=== PATIENT | male | born 1945 | race Caucasian/White ===

== ENCOUNTER 2018-08-05 05:08 | Inpatient (IN) ==
[~2018-08-05 05:08] MED LIST: Metoprolol Tartrate 25 MG Tablet PO SCH
[2018-08-05] MEDS ORDERED: Metoprolol Tartrate 25 MG Tablet PO ONE (05:30)
[2018-08-05] MEDS ORDERED: Chlorhexidine Gluconate 2% 1 Pack (2 Cloths) TOPICAL ONE (05:30)
[2018-08-05] MEDS ORDERED: Insulin Regular (For Infusion) 100 UNIT in Sodium Chlor 0.9% Inj 99 ML IV.CONT PRN (05:36)
[2018-08-05] MEDS ORDERED: Dextrose 50% in Water 50 ML Vial IV.PUSH PRN ×2 (05:36→12:48)
[2018-08-05] MEDS ORDERED: Sodium Chlor 0.9% Inj 77.5 ML, Papaverine Inj 60 MG, Nitroglycerin Inj 100 MCG, dilTIAZ... IRRIGATION SCH ×3 (05:45)
[2018-08-05] MEDS ORDERED: Chlorhexidine 4% Topical 120 APPLIC/120 ML Bottle TOPICAL SCH (05:45)
[2018-08-05] MEDS ORDERED: Sodium Chloride 0.9% Irr Bot 500 ML, ceFAZolin Inj 500 MG IRRIGATION SCH ×2 (05:45)
[2018-08-05] MEDS ORDERED: Sodium Chlor 0.9% Inj 500 ML IV.SIG SCH (06:00)
[2018-08-05] MEDS ORDERED: ceFAZolin Inj 2,000 MG in Sodium Chlor 0.9% Inj 80 ML IV.SIG SCH (06:00)
[2018-08-05] MEDS ORDERED: Heparin - SQ 10,000 UNITS/ML Vial ONE ×2 (06:30→06:31)
[2018-08-05] MEDS ORDERED: MethylPREDNISolone Sod Succinate Inj 125 MG/2 ML Vial ONE (06:30)
[2018-08-05] MEDS ORDERED: Cardioplegic Irr Soln 2,000 ML IRRIGATION ONE (07:17)
[2018-08-05] MEDS ORDERED: Albumin Human 25% Inj 50 ML IV.SIG ONE (07:17)
[2018-08-05] MEDS ORDERED: Heparin 10,000 UNITS/10 ML Vial (for IV use) ONE ×2 (07:18→13:19)
[2018-08-05] MEDS ORDERED: Potassium Chlor 40 mEq Premix 80 MEQ/200 ML PIGGYBACK ONE (07:18)
[2018-08-05] MEDS ORDERED: Sodium Bicarbonate 8.4% Inj 50 MEQ/50 ML Syringe ONE (07:19)
[2018-08-05] MEDS ORDERED: Calcium Chloride Inj 1 GM/10 ML Syringe ONE (07:20)
[2018-08-05] MEDS ORDERED: ceFAZolin 1 GM Premix Inj 1 GM/50 ML PIGGYBACK IV.SIG ONE (11:38)
[2018-08-05] MEDS ORDERED: Dexmedetomidine Inj 200 MCG in Sodium Chlor 0.9% Inj 48 ML IV.CONT PRN (12:48)
[2018-08-05] MEDS ORDERED: Magnesium Sulfate Inj 2 GM in Sodium Chlor 0.9% Inj 96 ML IV.SIG PRN ×4 (12:48)
[2018-08-05] MEDS ORDERED: Metoprolol Inj 5 MG/5 ML Vial IV.PUSH PRN (12:48)
[2018-08-05] MEDS ORDERED: Potassium Chlor 20 mEq Premix 20 MEQ/100 ML PIGGYBACK IV.SIG PRN ×3 (12:48)
[2018-08-05] MEDS ORDERED: Clevidipine Inj 25 MG/50 ML VIAL IV.CONT PRN (12:48)
[2018-08-05] MEDS ORDERED: RESP: Racemic Epinephrine 2.25% 0.5 ML Neb NEB PRN (12:48)
[2018-08-05] MEDS ORDERED: Post-op Orders (for Pharmacy) OTHER STA (12:48)
[2018-08-05] MEDS ORDERED: Calcium Chloride Inj 1 GM/10 ML Syringe IV.PUSH PRN (12:48)
--- NOTE | 2018-08-05 13:03 | P.OP ---
- Preoperative Diagnosis (1) CAD (coronary artery disease) (2) PSVT (paroxysmal supraventricular tachycardia) (3) Angina pectoris - Postoperative Diagnosis (1) Angina pectoris (2) CAD (coronary artery disease) (3) PSVT (paroxysmal supraventricular tachycardia) Date of procedure: 08/05/18 Procedure: CABG x 5 SOTELO to LAd - good SVG to D1 - good SVG to OM1 - good SVG to OM@ - good SVG to PDA - fair MAZE procedure EVH (bilateral) Anesthesia: NELI Surgeon: Maureen Spear MD [employer] Investigator: Agnieszka Lynch Pathology: other (left atrial appendage) Operation and Findings: The risks, benefits, complications, treatment options, and expected outcomes were discussed with the patient. The possibilities of reaction to medication, pulmonary aspiration, perforation of viscus, bleeding, recurrent infection, the need for additional procedures, failure to diagnose a condition, and creating a complication requiring transfusion or operation were discussed with the patient. The patient concurred with the proposed plan, giving informed consent. The site of surgery properly noted/marked. The patient was taken to Operating Room, identified as Elias Arenas and the procedure verified as CABG, EVH, MAZE procedure. A Time Out was held and the above information confirmed. Standard monitoring lines and Nguyễn catheter were placed. General anesthesia was induced. The patient was prepped and draped in a sterile fashion. A median sternotomy was performed and electrocautery was used to obtain hemostasis. The left internal mammary artery was procured as a pedicle from the 7th rib to the 1st rib in the usual manner. Simultaneously left and right greater saphenous vein was procured from the both legs using a minimally invasive endoscopic technique. The vein was prepared for anastomosis and the leg wounds were irrigated and closed in 2 layers. The pericardium was opened and a pericardial sling was created using interrupted 0 silk sutures. The patient was heparinized for cardiopulmonary bypass and the distal mammary pedicle was instrumented for anastomosis. The heart was instrumented for cardiopulmonary bypass in the usual manner. Antegrade blood cardioplegia was employed. The patient was placed on cardiopulmonary bypass. A limited MAZE procedure was performed by resecting the left atrial appendage with a surgical stapler, and treating all 4 pulmonary veins with RF ablation using an Atricure device. An aortic cross-clamp was applied and the heart was arrested using cold blood cardioplegia. Antegrade cardioplegia was administered after each anastomosis. After adequate arrest, the distal right coronary circulation was investigated and the PDA was opened with a [place] blade and found to be a 1 millimeter fair target. Saphenous vein was approximated to the PDA artery using a running 7 0 Prolene suture. The graft was measured for length and orientation and the proximal anastomosis was constructed to the ascending aorta using a running 5 0 Prolene suture after creating an aortotomy with a 5 millimeter punch. The OM2 was opened with a [place] blade and found to be a 1.5 millimeter good target. Saphenous vein was approximated to the OM2 artery using a running 7 0 Prolene suture. The graft was measured for length and orientation and the proximal anastomosis was constructed to the ascending aorta using a running 5 0 Prolene suture after creating an aortotomy with a 5 millimeter punch. The OM1 was opened with a [place] blade and found to be a 1.5 millimeter good target. Saphenous vein was approximated to the OM1 artery using a running 7 0 Prolene suture. The graft was measured for length and orientation and the proximal anastomosis was constructed to the ascending aorta using a running 5 0 Prolene suture after creating an aortotomy with a 5 millimeter punch. The 1st diagonal artery was then opened with a [place] blade and found to be a 1.5 millimeter good target. Saphenous vein was approximated to the D1 artery using a running 7 0 Prolene suture. The graft was measured for length and orientation and was suspended from the pericardium. The distal LAD was opened with a [place] blade and found to be a 1.5 millimeter good target. The left internal mammary artery was approximated to the LAD using a running 7 0 Prolene suture. The pedicle was attached to the epicardium using interrupted 5 0 silk suture. The patient was systemically rewarmed and received a hotshot dose of warm blood cardioplegia. The aorta was vented and the proximal anastomosis to the D1 graft was accomplished using a running 5 0 Prolene suture after creating an aortotomy was a 5 millimeter punch. The cross-clamp was removed and all proximal and distal anastomoses were examined for hemostasis. Temporary atrial pacing on wires were positioned and brought out through the skin in the usual manner. The patient was weaned from cardiopulmonary bypass. Protamine was given. There was no adverse reaction. Decannulation was carried out without incident. Wound was checked for hemostasis which was obtained using electrocautery. A 36 [place] mediastinal and 32 [place] left pleural chest tubes were placed and secured to the skin with 0 silk suture. The sternum was closed with stainless steel wire. The fascia was closed with 1. PDS. The subcutaneous tissue was closed using a running 2-0 Vicryl suture. The skin was closed with 4-0 Monocryl. Sterile dressings were placed. At the end of the operation, all sponge, instruments, and needle counts were correct. The patient was transferred to the CVICU in stable condition and in sinus rhythm Findings: Relatively good distal targets XC: 80 min CPB: 96 min Drains: mediastinal x 1 pleural x 1 Specimens: left atrial appendage Complications: none Pacing Wires: 2 atrial
[2018-08-05] MEDS ORDERED: Potassium Chlor 40 mEq Premix 40 MEQ/100 ML PIGGYBACK ONE (13:19)
--- NOTE | 2018-08-05 13:45 | P.PNCV ---
- Note Subjective/Hospital Course: A 73-year-old patient of Dr. Kamari Amezquita and Dr. Beltre who presented with history of recently diagnosed atrial fibrillation. Pt was initially 07/16/18 , was placed on Eliquis and then also just recently on Brilinta. Been complaining of some chest discomfort. Underwent CT scan showing inferior reversible defect consistent with ischemia. Was admitted electively for cardiac catheterization. Catheterization showed an ejection fraction of 45%, left main disease of 40%, proximal LAD 70%, mid LAD 80%, diagonal 80%. The circumflex was 31, OM 80%, the ramus 80% proximally. We were consulted to evaluate for coronary artery bypass grafting. PAST MEDICAL HISTORY: Includes atrial fibrillation, hypertension, hyperlipidemia , peripheral vascular disease, benign prostatic hypertrophy, hypertension, hyperlipidemia, hematuria. 08/05 pt electively admitted for surgery Date of procedure: 08/05/18 Procedure: CABG x 5 SOTELO to LAd - good SVG to D1 - good SVG to OM1 - good SVG to OM@ - good SVG to PDA - fair MAZE procedure EVH (bilateral) Objective: Vital Signs - 24 hr 08/05/18 06:32 Temperature 98.9 F Pulse Rate 68 Respiratory Rate 20 Blood Pressure 146/100 H Pulse Oximetry 94 L Labs: Laboratory Results - last 12 hr 08/05/18 06:25 Blood Type O Negative Antibody Screen Negative MTS Gel Crossmatch See Detail Bld Prod Order Comment
[2018-08-05] MEDS: Insulin Regular (For Infusion) 100 UNIT in Sodium Chlor 0.9% Inj 99 ML IV.CONT PRN (13:50)
[2018-08-05] MEDS ORDERED: RASS Change Order OTHER ONE (14:00)
[2018-08-05] MEDS: Albumin Human 5% Inj 250 ML IV.SIG PRN ×2 (14:00→14:52)
[2018-08-05] MEDS ORDERED: fentaNYL Citrate Inj 250 MCG/5 ML Ampul ONE (14:24)
[2018-08-05] MEDS ORDERED: Morphine Inj 4 MG/ML Vial ONE (14:25)
[2018-08-05] MEDS: Calcium Chloride Inj 1 GM in Sodium Chlor 0.9% Inj 100 ML IV.SIG PRN ×2 (14:32→17:04)
[2018-08-05 15:25] LABS: Baso # (Auto) 0.1 th/mm3 (0.0-0.2); Baso % (Auto) 0.4 % (0.0-2.0); Eos % (Auto) 0.1 % (0.0-4.0); Hematocrit 30.5 % (39.0-51.0); Hemoglobin 10.5 gm/dL (13.0-17.0); Lymph # (Auto) 0.7 th/mm3 (1.0-4.8); Lymph % (Auto) 4.7 % (9.0-44.0); Mean Corpuscular HGB Conc 34.6 % (32.0-36.0); Mean Corpuscular Hemoglobin 32.3 pg (27.0-34.0); Mean Corpuscular Volume 93.4 fL (80.0-100.0); Mean Platelet Volume 8.9 fL (7.0-11.0); Mono # (Auto) 0.6 th/mm3 (0.0-0.9); Mono % (Auto) 3.9 % (0.0-8.0); Neut # (Auto) 12.8 th/mm3 (1.8-7.7); Neut % (Auto) 90.9 % (16.0-70.0); Platelet Count 138 th/mm3 (150-450); Red Blood Count 3.26 mil/mm3 (4.50-5.90); Red Cell Distribution Width 14.7 % (11.6-17.2); White Blood Count 14.1 th/mm3 (4.0-11.0)
--- NOTE | 2018-08-05 15:28 | XR ---
EXAM DATE: 08/05/2018 2:34 PM EST AGE/SEX: 73 years / Male INDICATIONS: Short of breath. CLINICAL DATA: This is the patient's initial encounter. Patient reports that signs and symptoms have been present for 1 day and indicates a pain score of Nonresponsive. MEDICAL/SURGICAL HISTORY: . AFIB. None. [place] [facility] [place] . FINDINGS: There is an ETT approximately 2 cm above the oly. Right IJ introducer in the SVC. Mediastinal drai ns and left-sided chest tube in place. No significant pneumothorax. Minimal left basilar linear paren chymal opacities. Cardiomegaly mediastinal contours are within normal limits. Remainder of exam is un changed. CONCLUSION: 1. Expected postoperative features with tubes and lines, as above. 2. No pneumothorax. 3. Mild left lower lung zone atelectasis. Electronically signed by: Jorge Verdin MD 08/05/2018 3:27 PM EST
[2018-08-05 15:39] LABS: Activated Partial Thrombo Time 27.5 sec (23.4-31.7); INR 1.3 Ratio; Prothrombin Time 13.4 sec (9.8-11.6)
[2018-08-05] MEDS ORDERED: ceFAZolin 1 GM Premix Inj 1 GM/50 ML PIGGYBACK IV.SIG SCH (16:00)
[2018-08-05] MEDS: fentaNYL Citrate Inj 100 MCG/2 ML Ampul IV.PUSH PRN ×3 (16:29→23:29)
[2018-08-05] MEDS: Amiodarone 200 MG Tablet PO SCH ×2 (17:15→22:11)
[2018-08-05] MEDS: ceFAZolin 1 GM Premix Inj 1 GM/50 ML PIGGYBACK IV.SIG SCH (20:26)
[2018-08-06] MEDS: Albumin Human 5% Inj 250 ML IV.SIG PRN (00:19)
[2018-08-06] MEDS: fentaNYL Citrate Inj 100 MCG/2 ML Ampul IV.PUSH PRN (01:22)
[2018-08-06] MEDS: ceFAZolin 1 GM Premix Inj 1 GM/50 ML PIGGYBACK IV.SIG SCH ×3 (04:00→19:46)
[2018-08-06 04:58] LABS: Hematocrit 27.6 % (39.0-51.0); Hemoglobin 9.5 gm/dL (13.0-17.0); Mean Corpuscular HGB Conc 34.6 % (32.0-36.0); Mean Corpuscular Hemoglobin 31.8 pg (27.0-34.0); Mean Corpuscular Volume 92.1 fL (80.0-100.0); Mean Platelet Volume 9.4 fL (7.0-11.0); Platelet Count 159 th/mm3 (150-450); Red Cell Distribution Width 14.6 % (11.6-17.2)
[2018-08-06 05:16] LABS: Anion Gap 7 meq/L (5-15); Blood Urea Nitrogen 12 mg/dL (7-18); Calcium 8.1 mg/dL (8.5-10.1); Carbon Dioxide 25.8 meq/L (21.0-32.0); Chloride 106 meq/L (98-107); Glomerular Filtration Rate Greater Than 89 mL/min (>89); Glucose,Random 112 mg/dL (74-106); Magnesium 1.9 mg/dL (1.5-2.5); Sodium 139 meq/L (136-145)
[2018-08-06] MEDS: Insulin Regular (For Infusion) 100 UNIT in Sodium Chlor 0.9% Inj 99 ML IV.CONT PRN (06:06)
[2018-08-06] MEDS: Amiodarone 200 MG Tablet PO SCH ×3 (06:07→22:25)
--- NOTE | 2018-08-06 06:14 | XR ---
EXAM DATE: 08/06/2018 6:05 AM EST AGE/SEX: 73 years / Male INDICATIONS: Post CABG. CLINICAL DATA: This is the patient's subsequent encounter. Patient reports that signs and symptoms h ave been present for 2 days and indicates a pain score of Nonresponsive. MEDICAL/SURGICAL HISTORY: . A-fib. None. [place] [facility] [place]. . FINDINGS: A single AP view of the chest demonstrates a left thoracostomy tube and right-sided central line. End otracheal tube and nasogastric tube have been removed. Median sternotomy wires noted. Heart is mildly enlarged. Mild bibasilar atelectasis. No infiltrate or pneumothorax. No effusions. Left posterior th ird rib fracture appears chronic. CONCLUSION: Interval extubation. Mild bibasilar atelectasis. Electronically signed by: Wayne Kidd MD 08/06/2018 6:13 AM EST
[2018-08-06] MEDS ORDERED: Bisacodyl 10 MG Supp RECTAL PRN (08:47)
[2018-08-06] MEDS ORDERED: Sod Phosphate/Sod Biphosphate (Adult) Enema 133 ML Bottle RECTAL PRN (08:47)
[2018-08-06] MEDS ORDERED: Dextrose 50% in Water 50 ML Vial IV.PUSH PRN (08:47)
[2018-08-06] MEDS: Multivitamin/Minerals Therapeutic Tablet PO SCH (09:30)
[2018-08-06] MEDS: Insulin NovoLOG Aspart Correctional Sugar Inj SQ SCH ×4 (10:24→22:01)
--- NOTE | 2018-08-06 11:33 | P.PNCV ---
- Note Subjective/Hospital Course: A 73-year-old patient of Dr. Kamari Amezquita and Dr. Beltre who presented with history of recently diagnosed atrial fibrillation. Pt was initially 07/16/18 , was placed on Eliquis and then also just recently on Brilinta. Been complaining of some chest discomfort. Underwent CT scan showing inferior reversible defect consistent with ischemia. Was admitted electively for cardiac catheterization. Catheterization showed an ejection fraction of 45%, left main disease of 40%, proximal LAD 70%, mid LAD 80%, diagonal 80%. The circumflex was 31, OM 80%, the ramus 80% proximally. We were consulted to evaluate for coronary artery bypass grafting. PAST MEDICAL HISTORY: Includes atrial fibrillation, hypertension, hyperlipidemia , peripheral vascular disease, benign prostatic hypertrophy, hypertension, hyperlipidemia, hematuria. 08/05 pt electively admitted for surgery Date of procedure: 08/05/18 Procedure: CABG x 5 SOTELO to LAd - good SVG to D1 - good SVG to OM1 - good SVG to OM@ - good SVG to PDA - fair MAZE procedure EVH (bilateral) pt extubated after surgery / initially on Nader gtt / weaned off last pm 08/06 up in chair , doing well + 6 kg, on nasal cannula gentle diuresis pt will need to resume eliquis prior to dc pulm toileting on Amiodarone . statin , ASA eval for BB later today transfer to stepdown Objective: Vital Signs - 24 hr 08/05/18 13:45 08/05/18 13:57 08/05/18 14:00 Temperature 97.9 F 97.9 F Pulse Rate 60 Respiratory Rate 14 11 L Blood Pressure 98/57 L Pulse Oximetry 97 96 08/05/18 15:04 08/05/18 16:26 08/05/18 16:30 Temperature 97.3 F L 97.4 F L Pulse Rate Respiratory Rate Blood Pressure Pulse Oximetry 98 08/05/18 16:49 08/05/18 16:54 08/05/18 19:00 Temperature 97.7 F Pulse Rate 69 67 76 Respiratory Rate 14 18 Blood Pressure 112/67 Pulse Oximetry 97 08/05/18 19:15 08/05/18 21:08 08/05/18 22:07 Temperature 98.5 F 98.6 F Pulse Rate 74 72 Respiratory Rate 16 18 Blood Pressure 121/60 Pulse Oximetry 95 96 08/05/18 23:00 08/06/18 01:14 08/06/18 03:00 Temperature 98.9 F 98.6 F 98.9 F Pulse Rate 69 78 Respiratory Rate 16 16 Blood Pressure 128/68 129/66 Pulse Oximetry 94 L 95 08/06/18 04:16 08/06/18 07:26 08/06/18 09:15 Temperature 98.2 F Pulse Rate 84 70 82 Respiratory Rate 18 18 17 Blood Pressure 105/54 L Pulse Oximetry 97 98 GENERAL: A&O x 3 SKIN: Warm and dry. prevena dressing to chest , kar wrap to left leg HEAD: Normocephalic. EYES: No scleral icterus. No injection or drainage. NECK: Supple, trachea midline. No JVD or lymphadenopathy. CARDIOVASCULAR: Regular rate and rhythm without murmurs, gallops, or rubs. RESPIRATORY: Breath sounds equal bilaterally. No accessory muscle use. diminished in bases / chest tube to wall suction, no air leak / drained 190cc/ 12 hrs GASTROINTESTINAL: Abdomen soft, non-tender, nondistended. MUSCULOSKELETAL: No cyanosis, or edema. BACK: Nontender without obvious deformity. No CVA tenderness. Labs: Laboratory Results - last 12 hr 08/05/18 08/06/18 08/06/18 23:29 00:22 01:15 WBC RBC Hgb Hct MCV MCH MCHC RDW Plt Count MPV Sodium Potassium Chloride Carbon Dioxide Anion Gap BUN Creatinine Estimated GFR POC Glucose 135 H 110 94 Random Glucose Calcium Magnesium 08/06/18 08/06/18 08/06/18 03:03 04:26 04:27 WBC 14.0 H RBC 3.00 L Hgb 9.5 L Hct 27.6 L MCV 92.1 MCH 31.8 MCHC 34.6 RDW 14.6 Plt Count 159 MPV 9.4 Sodium Potassium Chloride Carbon Dioxide Anion Gap BUN Creatinine Estimated GFR POC Glucose 130 H 123 H Random Glucose Calcium Magnesium 08/06/18 08/06/18 08/06/18 04:27 06:04 07:20 WBC RBC Hgb Hct MCV MCH MCHC RDW Plt Count MPV Sodium 139 Potassium 4.0 Chloride 106 Carbon Dioxide 25.8 Anion Gap 7 BUN 12 Creatinine 0.74 Estimated GFR Greater than 89 POC Glucose 123 H 91 Random Glucose 112 H Calcium 8.1 L Magnesium 1.9 08/06/18 08/06/18 08:20 10:00 WBC RBC Hgb Hct MCV MCH MCHC RDW Plt Count MPV Sodium Potassium Chloride Carbon Dioxide Anion Gap BUN Creatinine Estimated GFR POC Glucose 96 153 H Random Glucose Calcium Magnesium Result Diagrams: 08/06/18 04:27 08/06/18 04:27 Telemetry: NSR - Plan (8) S/P CABG x 5 Plan: Resp: pulm toileting nebs ezpap acapella OOB ambulate CV: S/P CABG gentle diuresis add BB later today on amiodarone statin and ASA GI : Gi motility meds lines CVC line day 2 dc [facility]
--- NOTE | 2018-08-06 12:07 | P.DIET ---
Nutritional Evaluation Screening comments: MDC for diet education s/p CABG x 4 on 08/05 received. Patient Navigator to provide education. Consult RD if complexities with diet education arise.
--- NOTE | 2018-08-06 17:02 | ECG ---
Date Performed: 08/06/2018 Time Performed: 04:44:12 PTAGE: 73 years EKG: Sinus rhythm Normal ECG PREVIOUS TRACING : 07/15/2018 14.28 Since the previous tracing, no significant change noted DOCTOR: Myron Beltre Interpretating Date/Time 08/06/2018 17:01:46
[2018-08-06] MEDS: ALPRAZolam 0.25 MG Tablet PO SCH (19:45)
[2018-08-06] MEDS: Docusate Sodium 100 MG Capsule PO SCH (21:58)
[2018-08-07] MEDS: Insulin NovoLOG Aspart Correctional Sugar Inj SQ SCH ×5 (02:49→22:00)
[2018-08-07] MEDS: ceFAZolin 1 GM Premix Inj 1 GM/50 ML PIGGYBACK IV.SIG SCH (04:40)
[2018-08-07 05:20] LABS: Baso % (Auto) 0.2 % (0.0-2.0); Eos % (Auto) 0.4 % (0.0-4.0); Hematocrit 25.2 % (39.0-51.0); Hemoglobin 8.6 gm/dL (13.0-17.0); Lymph # (Auto) 0.9 th/mm3 (1.0-4.8); Lymph % (Auto) 7.4 % (9.0-44.0); Mean Corpuscular Hemoglobin 31.9 pg (27.0-34.0); Mean Corpuscular Volume 93.9 fL (80.0-100.0); Mean Platelet Volume 8.8 fL (7.0-11.0); Mono # (Auto) 1.5 th/mm3 (0.0-0.9); Mono % (Auto) 12.5 % (0.0-8.0); Neut # (Auto) 9.3 th/mm3 (1.8-7.7); Neut % (Auto) 79.5 % (16.0-70.0); Platelet Count 151 th/mm3 (150-450); Red Blood Count 2.69 mil/mm3 (4.50-5.90); Red Cell Distribution Width 14.9 % (11.6-17.2); White Blood Count 11.7 th/mm3 (4.0-11.0)
[2018-08-07] MEDS: Amiodarone 200 MG Tablet PO SCH ×3 (05:26→21:02)
[2018-08-07 05:55] LABS: Anion Gap 6 meq/L (5-15); Blood Urea Nitrogen 19 mg/dL (7-18); Chloride 103 meq/L (98-107); Glomerular Filtration Rate Greater Than 89 mL/min (>89); Glucose,Random 126 mg/dL (74-106); Magnesium 2.1 mg/dL (1.5-2.5); Potassium 4.5 meq/L (3.5-5.1); Sodium 137 meq/L (136-145)
[2018-08-07] MEDS: Polyethylene Glycol 3350 17 GM Packet PO SCH (08:25)
[2018-08-07] MEDS: ALPRAZolam 0.25 MG Tablet PO SCH ×2 (08:27→21:01)
[2018-08-07] MEDS: Multivitamin/Minerals Therapeutic Tablet PO SCH (08:27)
[2018-08-07] MEDS: Docusate Sodium 100 MG Capsule PO SCH ×2 (08:27→21:01)
--- NOTE | 2018-08-07 08:56 | P.PNCV ---
- Note Subjective/Hospital Course: A 73-year-old patient of Dr. Kamari Amezquita and Dr. Beltre who presented with history of recently diagnosed atrial fibrillation. Pt was initially 07/16/18 , was placed on Eliquis and then also just recently on Brilinta. Been complaining of some chest discomfort. Underwent CT scan showing inferior reversible defect consistent with ischemia. Was admitted electively for cardiac catheterization. Catheterization showed an ejection fraction of 45%, left main disease of 40%, proximal LAD 70%, mid LAD 80%, diagonal 80%. The circumflex was 31, OM 80%, the ramus 80% proximally. We were consulted to evaluate for coronary artery bypass grafting. PAST MEDICAL HISTORY: Includes atrial fibrillation, hypertension, hyperlipidemia , peripheral vascular disease, benign prostatic hypertrophy, hypertension, hyperlipidemia, hematuria. 08/05 pt electively admitted for surgery Date of procedure: 08/05/18 Procedure: CABG x 5 SOTELO to LAd - good SVG to D1 - good SVG to OM1 - good SVG to OM@ - good SVG to PDA - fair MAZE procedure EVH (bilateral) pt extubated after surgery / initially on Nader gtt / weaned off last pm 08/06 up in chair , doing well + 6 kg, on nasal cannula gentle diuresis pt will need to resume eliquis prior to dc pulm toileting on Amiodarone . statin , ASA eval for BB later today transfer to stepdown 08/07 + balance, gentle diuresis add BB , add prn melatonin for sleep wean 02 dc chest tubes, dc cvc line resume eliquis this pm Objective: Vital Signs - 24 hr 08/06/18 09:15 08/06/18 11:00 08/06/18 15:25 Temperature 98.4 F Pulse Rate 82 87 86 Respiratory Rate 17 16 17 Blood Pressure 113/65 Pulse Oximetry 98 97 08/06/18 15:46 08/06/18 19:00 08/06/18 19:58 Temperature 98.7 F 98.3 F Pulse Rate 91 H 89 85 Respiratory Rate 18 22 22 Blood Pressure 131/65 157/76 H Pulse Oximetry 96 91 L 95 08/06/18 23:00 08/07/18 03:00 08/07/18 07:00 Temperature 97.9 F 98.5 F 98.4 F Pulse Rate 89 82 85 Respiratory Rate 20 21 14 Blood Pressure 136/68 121/63 131/66 Pulse Oximetry 96 96 97 08/07/18 07:18 08/07/18 08:00 Temperature Pulse Rate 85 Respiratory Rate 17 Blood Pressure Pulse Oximetry 97 97 GENERAL: A&O x 3 SKIN: Warm and dry. prevena dressing to chest , kar wrap to left leg HEAD: Normocephalic. EYES: No scleral icterus. No injection or drainage. NECK: Supple, trachea midline. No JVD or lymphadenopathy. CARDIOVASCULAR: Regular rate and rhythm without murmurs, gallops, or rubs. mild general edema RESPIRATORY: Breath sounds equal bilaterally. No accessory muscle use. few basilar crackles GASTROINTESTINAL: Abdomen soft, non-tender, nondistended. MUSCULOSKELETAL: No cyanosis, or edema. BACK: Nontender without obvious deformity. No CVA tenderness. Labs: Laboratory Results - last 12 hr 08/07/18 08/07/18 08/07/18 00:24 04:40 04:40 WBC 11.7 H RBC 2.69 L Hgb 8.6 L Hct 25.2 L MCV 93.9 MCH 31.9 MCHC 34.0 RDW 14.9 Plt Count 151 MPV 8.8 Neut % (Auto) 79.5 H Lymph % (Auto) 7.4 L Wise % (Auto) 12.5 H Eos % (Auto) 0.4 Baso % (Auto) 0.2 Neut # (Auto) 9.3 H Lymph # (Auto) 0.9 L Wise # (Auto) 1.5 H Eos # (Auto) 0.0 Baso # (Auto) 0.0 WBC Differential . Differential Comment Auto diff final Sodium 137 Potassium 4.5 Chloride 103 Carbon Dioxide 28.0 Anion Gap 6 BUN 19 H Creatinine 0.82 Estimated GFR Greater than 89 POC Glucose 135 H Random Glucose 126 H Calcium 8.0 L Magnesium 2.1 Result Diagrams: 08/07/18 04:40 08/07/18 04:40 - Plan (8) S/P CABG x 5 Plan: Resp: pulm toileting nebs ezpap acapella OOB ambulate CV: S/P CABG gentle diuresis BB on amiodarone statin and ASA resume eliquis GI : Gi motility meds lines CVC line day 2/ dc today transfer to stepdown
[2018-08-07] MEDS: Metoprolol Tartrate 25 MG Tablet PO SCH ×2 (09:41→21:02)
[2018-08-07] MEDS ORDERED: Melatonin 5 MG Tablet PO PRN (21:00)
[2018-08-08 05:05] LABS: Anion Gap 3 meq/L (5-15); Blood Urea Nitrogen 18 mg/dL (7-18); Calcium 7.8 mg/dL (8.5-10.1); Carbon Dioxide 31.8 meq/L (21.0-32.0); Chloride 101 meq/L (98-107); Glomerular Filtration Rate Greater Than 89 mL/min (>89); Glucose,Random 89 mg/dL (74-106); Magnesium 2.1 mg/dL (1.5-2.5); Potassium 4.4 meq/L (3.5-5.1); Sodium 136 meq/L (136-145)
[2018-08-08] MEDS: Amiodarone 200 MG Tablet PO SCH ×3 (05:34→21:08)
--- NOTE | 2018-08-08 05:54 | XR ---
EXAM DATE: 08/08/2018 5:49 AM EST AGE/SEX: 73 years / Male INDICATIONS: Chest tube removal. Rule out PTX. CLINICAL DATA: This is the patient's subsequent encounter. Patient reports that signs and symptoms h ave been present for 3 days and indicates a pain score of Nonresponsive. MEDICAL/SURGICAL HISTORY: . A-Fib. Hypertension. BPH. CAD. Hyperlipidemia. Mitral regurgitation . PVD. . CABG. Chest Tube. COMPARISON: [facility] – [place]ST 1V SINGLE AP, 08/06/2018. . FINDINGS: Cardiomegaly and left basilar airspace disease increased from previous. There is also atelectasis see n at the left base. Sternotomy wires are noted. Left-sided chest tube has been removed. I do not see a pneumothorax. CONCLUSION: No obvious pneumothorax status post chest tube removal. Electronically signed by: William Saavedra MD 08/08/2018 5:53 AM EST
[2018-08-08] MEDS: Polyethylene Glycol 3350 17 GM Packet PO SCH (09:50)
[2018-08-08] MEDS: ALPRAZolam 0.25 MG Tablet PO SCH ×2 (09:50→19:59)
[2018-08-08] MEDS: Docusate Sodium 100 MG Capsule PO SCH ×2 (09:50→19:59)
[2018-08-08] MEDS: Multivitamin/Minerals Therapeutic Tablet PO SCH (09:51)
[2018-08-08] MEDS: Metoprolol Tartrate 25 MG Tablet PO SCH ×2 (09:52→20:01)
[2018-08-08] MEDS: Insulin NovoLOG Aspart Correctional Sugar Inj SQ SCH ×4 (09:53→20:12)
--- NOTE | 2018-08-08 10:39 | P.PNCV ---
- Note Subjective/Hospital Course: A 73-year-old patient of Dr. Kamari Amezquita and Dr. Beltre who presented with history of recently diagnosed atrial fibrillation. Pt was initially 07/16/18 , was placed on Eliquis and then also just recently on Brilinta. Been complaining of some chest discomfort. Underwent CT scan showing inferior reversible defect consistent with ischemia. Was admitted electively for cardiac catheterization. Catheterization showed an ejection fraction of 45%, left main disease of 40%, proximal LAD 70%, mid LAD 80%, diagonal 80%. The circumflex was 31, OM 80%, the ramus 80% proximally. We were consulted to evaluate for coronary artery bypass grafting. PAST MEDICAL HISTORY: Includes atrial fibrillation, hypertension, hyperlipidemia , peripheral vascular disease, benign prostatic hypertrophy, hypertension, hyperlipidemia, hematuria. 08/05 pt electively admitted for surgery Date of procedure: 08/05/18 Procedure: CABG x 5 SOTELO to LAd - good SVG to D1 - good SVG to OM1 - good SVG to OM@ - good SVG to PDA - fair MAZE procedure EVH (bilateral) pt extubated after surgery / initially on Nader gtt / weaned off last pm 08/06 up in chair , doing well + 6 kg, on nasal cannula gentle diuresis pt will need to resume eliquis prior to dc pulm toileting on Amiodarone . statin , ASA eval for BB later today transfer to stepdown 08/07 + balance, gentle diuresis add BB , add prn melatonin for sleep wean 02 dc chest tubes, dc cvc line resume eliquis this pm 08/08 CXR noted, no PTX, continue diuresis +3kg / on 02 plan for possible dc in am wean off 02 Objective: Vital Signs - 24 hr 08/07/18 11:00 08/07/18 14:00 08/07/18 15:00 Temperature 99.8 F H Pulse Rate 91 H 90 85 Respiratory Rate 14 Blood Pressure 126/70 Pulse Oximetry 92 L 08/07/18 16:00 08/07/18 16:39 08/07/18 17:00 Temperature 99.9 F H Pulse Rate 86 88 96 H Respiratory Rate 16 Blood Pressure 135/64 Pulse Oximetry 95 08/07/18 19:00 08/07/18 20:00 08/07/18 20:29 Temperature 98.7 F Pulse Rate 83 82 80 Respiratory Rate 18 18 Blood Pressure 111/59 L Pulse Oximetry 95 08/07/18 20:32 08/07/18 21:00 08/07/18 22:00 Temperature Pulse Rate 86 80 Respiratory Rate Blood Pressure Pulse Oximetry 95 08/07/18 23:00 08/08/18 00:00 08/08/18 01:00 Temperature 98.7 F Pulse Rate 74 72 74 Respiratory Rate 18 Blood Pressure 103/57 L Pulse Oximetry 95 08/08/18 02:00 08/08/18 03:00 08/08/18 04:00 Temperature 99 F Pulse Rate 76 78 72 Respiratory Rate 18 Blood Pressure 116/59 L Pulse Oximetry 94 L 08/08/18 05:00 08/08/18 06:00 08/08/18 07:00 Temperature 98 F Pulse Rate 78 74 93 H Respiratory Rate 16 Blood Pressure 131/61 Pulse Oximetry 93 L 08/08/18 07:22 Temperature Pulse Rate 80 Respiratory Rate 18 Blood Pressure Pulse Oximetry 94 L GENERAL: A&O x 3 SKIN: Warm and dry. prevena dressing to chest , left leg incision intact HEAD: Normocephalic. EYES: No scleral icterus. No injection or drainage. NECK: Supple, trachea midline. No JVD or lymphadenopathy. CARDIOVASCULAR: Regular rate and rhythm without murmurs, gallops, or rubs. general edema RESPIRATORY: Breath sounds equal bilaterally. No accessory muscle use. diminished in bases GASTROINTESTINAL: Abdomen soft, non-tender, nondistended. MUSCULOSKELETAL: No cyanosis, or edema. BACK: Nontender without obvious deformity. No CVA tenderness. Labs: Laboratory Results - last 12 hr 08/05/18 08/08/18 08/08/18 06:25 03:54 08:00 Sodium 136 Potassium 4.4 Chloride 101 Carbon Dioxide 31.8 Anion Gap 3 L BUN 18 Creatinine 0.77 Estimated GFR Greater than 89 POC Glucose 116 H Random Glucose 89 Calcium 7.8 L Magnesium 2.1 MTS Gel Crossmatch See Detail Result Diagrams: 08/07/18 04:40 08/08/18 03:54 Telemetry: NSR - Plan (8) S/P CABG x 5 Plan: Resp: pulm toileting nebs ezpap acapella OOB ambulate CV: S/P CABG bid diuretics BB on amiodarone statin and ASA eliquis GI : Gi motility meds l eval for dc in am
--- NOTE | 2018-08-08 12:09 | P.DS ---
Date of admission: 08/05/18 05:08 Primary care physician: Kamari Amezquita Attending physician on discharge: Maureen Spear Anticipated date of discharge: 08/09/18 Brief History from admission: A 73-year-old patient of Dr. Kamari Amezquita and Dr. Beltre who presented with history of recently diagnosed atrial fibrillation. Pt was initially 07/16/18 , was placed on Eliquis and then also just recently on Brilinta. Been complaining of some chest discomfort. Underwent CT scan showing inferior reversible defect consistent with ischemia. Was admitted electively for cardiac catheterization. Catheterization showed an ejection fraction of 45%, left main disease of 40%, proximal LAD 70%, mid LAD 80%, diagonal 80%. The circumflex was 31, OM 80%, the ramus 80% proximally. We were consulted to evaluate for coronary artery bypass grafting. PAST MEDICAL HISTORY: Includes atrial fibrillation, hypertension, hyperlipidemia , peripheral vascular disease, benign prostatic hypertrophy, hypertension, hyperlipidemia, hematuria. DS: Diagnosis - Discharge Diagnosis (1) BPH (benign prostatic hyperplasia) Status: Acute (2) CAD (coronary artery disease) Status: Acute (3) PSVT (paroxysmal supraventricular tachycardia) Status: Acute (4) Angina pectoris Status: Acute (5) Afib Status: Acute (6) Hyperlipidemia Status: Acute (7) Hypertension Status: Acute (8) S/P CABG x 5 Status: Acute DS: Medications - Discharge Medications Prescriptions: oxycodone-acetaminophen [Percocet] 1 tab PO Q4HR #40 tab amiodarone 200 mg PO Q12HR #28 tab docusate sodium [DOK] 100 mg PO BID #30 cap fluticasone 2 spray NASAL DAILY #1 bottle DS: Summary Hospital Course: 08/05 pt electively admitted for surgery Date of procedure: 08/05/18 Procedure: CABG x 5 SOTELO to LAd - good SVG to D1 - good SVG to OM1 - good SVG to OM@ - good SVG to PDA - fair MAZE procedure EVH (bilateral) pt extubated after surgery / initially on Nader gtt / weaned off last pm 08/06 up in chair , doing well + 6 kg, on nasal cannula gentle diuresis pt will need to resume eliquis prior to dc pulm toileting on Amiodarone . statin , ASA eval for BB later today transfer to stepdown 12/6 + balance, gentle diuresis add BB , add prn melatonin for sleep wean 02 dc chest tubes, dc cvc line resume eliquis this pm 08/08 CXR noted, no PTX, continue diuresis +3kg / on 02 plan for possible dc in am wean off 02 - Time Spent with Patient Total time spent providing and/or coordinating discharge services: Greater than 30 minutes - Quality: VTE Deep Vein Thrombosis/Pulmonary Embolism Present on Admission: No Exam Vital signs: Vital Signs 08/07/18 14:00 08/07/18 15:00 08/07/18 16:00 Temperature Pulse Rate 90 85 86 Respiratory Rate Blood Pressure Pulse Oximetry 08/07/18 16:39 08/07/18 17:00 08/07/18 19:00 Temperature 99.9 F H 98.7 F Pulse Rate 88 96 H 83 Respiratory Rate 16 18 Blood Pressure 135/64 111/59 L Pulse Oximetry 95 95 08/07/18 20:00 08/07/18 20:29 08/07/18 20:32 Temperature Pulse Rate 82 80 Respiratory Rate 18 Blood Pressure Pulse Oximetry 95 08/07/18 21:00 08/07/18 22:00 08/07/18 23:00 Temperature 98.7 F Pulse Rate 86 80 74 Respiratory Rate 18 Blood Pressure 103/57 L Pulse Oximetry 95 08/08/18 00:00 08/08/18 01:00 08/08/18 02:00 Temperature Pulse Rate 72 74 76 Respiratory Rate Blood Pressure Pulse Oximetry 08/08/18 03:00 08/08/18 04:00 08/08/18 05:00 Temperature 99 F Pulse Rate 78 72 78 Respiratory Rate 18 Blood Pressure 116/59 L Pulse Oximetry 94 L 08/08/18 06:00 08/08/18 07:00 08/08/18 07:22 Temperature 98 F Pulse Rate 74 93 H 80 Respiratory Rate 16 18 Blood Pressure 131/61 Pulse Oximetry 93 L 94 L Intake & Output 08/07/18 08/08/18 08/08/18 18:59 06:59 18:59 Intake Total 480 / 480 240 / 240 Output Total 1100 / 1100 425 / 425 Balance -620 / -620 -185 / -185 Weight 100 kg Intake: Oral 480 / 480 240 / 240 Output: Urine 1100 / 1100 425 / 425 - Constitutional no acute distress - Routine HEENT Exam Head: Present: normocephalic Eye: Present: EOMI, normal accommodation - Routine Neck Exam Present: supple, full ROM - Routine Chest/Breast/Axilla Exam Chest wall: Present: tenderness - Routine Respiratory Exam Present: accessory muscle use, crackles Comments: faint bibasilar crackles - Routine Cardiovascular Exam Present: RRR, S1, S2 Comments: mild general edema - Routine Abdominal Exam Present: soft, normoactive bowel sounds - Routine Extremities Exam Present: edema, full ROM, pulses intact, normal capillary refill - Routine Skin Exam Present: intact, wounds Comments: prevena dressing to chest , incision intact to left leg - Routine Neurological Exam Present: alert, oriented X3, CN II-XII intact Results Procedures completed during hospitalization: - Preoperative Diagnosis (1) CAD (coronary artery disease) (2) PSVT (paroxysmal supraventricular tachycardia) (3) Angina pectoris - Postoperative Diagnosis (1) Angina pectoris (2) CAD (coronary artery disease) (3) PSVT (paroxysmal supraventricular tachycardia) Date of procedure: 08/05/18 Procedure: CABG x 5 SOTELO to LAd - good SVG to D1 - good SVG to OM1 - good SVG to OM@ - good SVG to PDA - fair MAZE procedure EVH (bilateral) Labs on day of discharge: Labs from last 24 hours 08/08/18 08/08/18 08/08/18 11:52 08:00 03:54 Sodium 136 Potassium 4.4 Chloride 101 Carbon Dioxide 31.8 Anion Gap 3 L BUN 18 Creatinine 0.77 Estimated GFR Greater than 89 POC Glucose 137 H 116 H Random Glucose 89 Calcium 7.8 L Magnesium 2.1 MTS Gel Crossmatch 08/07/18 08/07/18 08/05/18 22:00 16:47 06:25 Sodium Potassium Chloride Carbon Dioxide Anion Gap BUN Creatinine Estimated GFR POC Glucose 126 H 158 H Random Glucose Calcium Magnesium MTS Gel Crossmatch See Detail - Impressions ITS Impressions Chest X-Ray 08/08/18 06:00 CONCLUSION: No obvious pneumothorax status post chest tube removal. Discharge Plan - Discharge Disposition Patient Disposition: Discharge to SNF - Discharge Condition Condition: Good - Discharge Order Discharge Orders: Discharge Order (Routine); Ordered 08/09/18 Ordered By: Flora Mcintosh - Discharge Details Anticipated Discharge Date: 08/09/18 Discharge Comment: once cleared by Dr Spear - Physicians Team Attending Provider: Maureen Spear - Rxs /Orders / Referrals /Forms Prescriptions: New amiodarone 200 mg Tablet 200 mg PO Q12HR Qty: 28 RF: 0 docusate sodium [DOK] 100 mg Capsule 100 mg PO BID Qty: 30 RF: 0 fluticasone 50 mcg/actuation [place],Suspension 2 spray NASAL DAILY Qty: 1 RF: 0 oxycodone-acetaminophen [Percocet] 5-325 mg Tablet 1 tab PO Q4HR Qty: 40 RF: 0 Continue apixaban [Eliquis] 5 mg Tablet 5 mg PO BID aspirin 81 mg Tablet,Delayed Release (Dr/Ec) 81 mg PO DAILY atenolol 50 mg Tablet 50 mg PO BID Qty: 0 RF: 0 atorvastatin 40 mg Tablet 40 mg PO DAILY cholecalciferol (vitamin D3) [Vitamin D3] 5,000 unit Tablet 5,000 unit PO DAILY [id number] [Multi Complete with Iron] 18-400 mg-mcg Tablet 1 tab PO DAILY tamsulosin 0.4 mg Capsule 0.4 mg PO DAILY Discontinued isosorbide mononitrate 30 mg Tablet Extended Release 24 Hr 30 mg PO DAILY nitroglycerin 0.4 mg Tablet, Sublingual 0.4 mg SUBLINGUAL Q5-15M PRN (Reason: Chest Pain) Ambulatory Orders / Order Sets / DME: XR chest 2V PA&LAT (Routine) Timeframe: 2 Weeks Location: Determined by Patient Ordered By: Flora Mcintosh Basic Metabolic Panel (Routine) Timeframe: 2 Weeks Location: Determined by Patient Ordered By: Flora Mcintosh Complete Blood Count NO Diff (Routine) Timeframe: 2 Weeks Location: Determined by Patient Ordered By: Flora Mcintosh Referrals: Kamari Amezquita [Other] - See Instructions ( Your appointment has been scheduled for [08/21/18] at [10:00 am] If you cannot make this appointment, please call the office to reschedule ) Flora Mcintosh [ADVANCE RN PRACTITIONER] - See Instructions ( Your appointment has been scheduled for [09/04/18] at [10:30 am] If you cannot make this appointment, please call the office to reschedule ) Myrno Beltre MD [Physician] - See Instructions (JAD FROM THE OFFICE WILL CALL YOU WITH AN APPOINTMENT) - Discharge Instructions Patient Printed Instructions: Coronary Artery Bypass Graft (DC) Additional Instructions: PREVENA Single Use Negative Wound Therapy System Caregiver Instruction Sheet 1. A Prevena dressing system was applied to the chest incision during surgery , to promote wound healing. It works via a suction device (negative pressure wound therapy) to remove low to moderate levels of exudate (drainage) and infectious materials. We recommend that the device stay in place for up to seven days, from day of surgery. 2. Day of Surgery /12/18 Day of Removal ___/07/20 3. The dressing should only be removed by a health career services assistant. Please arrange removal of device to coincide with Home Health visit and or with Nursing staff at Rehab 4. If skin reddening or irritation of skin occurs, or excessive drainage, please notify the Cardiovascular Surgeons office at [phone]. 5. Light showering is permissible; however the pump should be disconnected and placed in safe location, where it will not get wet. The dressing should not be exposed to direct spray or submerged in water. No bath tub / shower only. Ensure the end of the tubing attached to the dressing is facing down so that water does not enter the top of the tube. 6. To remove Prevena dressing: press purple button to turn off device / remove the suction. Then disconnect the tubing from the pump. The fixation strips should be stretched away from the skin and the dressing lifted at one corner and peeled back until it has been fully removed. 7. After removal, it is ok to shower daily using liquid dial soap and clean wash cloth, rinse and pat dry, and leave incision open to air dry. For any concerns regarding Prevena dressing, and or wounds, please contact Mitzi Oneill, patient navigator at [phone] or notify the Cardiovascular Surgeons office at [phone]. Incentive spirometry Q1 hr x 10, while awake, also use acapella device hourly whole awake Sternal Breast Bone Precautions: NO pushing or pulling, ( pt must use sternal pillow to support chest with all activities and with coughing ( takes up to 3 months breast bone to heal ) Daily incision care: ok to shower daily, no tub bath. Wash all incisions with liquid dial soap, clean wash cloth to each site, rinse and pat dry. Observe for any signs of infection, such as drainage which is dark yellow, fragoso, green or foul smelling. Immediately report to the surgeon any drainage from the chest incision, or legs, and for any abnormal drainage from the chest tube sites. Notify surgeon if any temp >101.5 degrees F. When specialty dressing removed/ or if you do not have one, continue to shower daily as above, then rinse and pat incision dry and paint with betadine daily x 5 days. Allow steri strips to fall off if you have any. Avoid lotions, creams, salves, oils, etc. for the first month Please see attached forms for additional instructions regarding post Open Heart specialty wound vacuum dressings. COREY or Prevena , Dressing to be removed by Nursing staff on _08/12/[address] Spear patients , please obtain CBC, BMP, PA & Lat CXR in 2 weeks, results to Dr. Spear ( prescription will be given) ( ) (Tele: [phone]) , F/U appointment: as per DC instructions: PCP in 2 weeks, CV surgeon 2 weeks, Refrigeration B[place]er/Solderer 3-4 weeks For any questions regarding incisions/ dressing / meds / post op care or above Symptoms, Saturday 8am-5pm Heart & Vascular Surgery Office ( Dr. Michaels & Dr. Spear), After Hours / Nights (5pm -8am) Weekends and Holidays Please call [facility] Card[facility] ([facility]) Charge Nurse
[2018-08-09] MEDS: Amiodarone 200 MG Tablet PO SCH ×2 (05:05→15:18)
[2018-08-09 05:22] LABS: Calcium 8.3 mg/dL (8.5-10.1); Carbon Dioxide 33.3 meq/L (21.0-32.0); Magnesium 2.2 mg/dL (1.5-2.5); Potassium 4.4 meq/L (3.5-5.1)
[2018-08-09] MEDS: Docusate Sodium 100 MG Capsule PO SCH (09:59)
[2018-08-09] MEDS: Metoprolol Tartrate 25 MG Tablet PO SCH (09:59)
[2018-08-09] MEDS: ALPRAZolam 0.25 MG Tablet PO SCH (09:59)
[2018-08-09] MEDS: Multivitamin/Minerals Therapeutic Tablet PO SCH (09:59)
[2018-08-09] MEDS: Insulin NovoLOG Aspart Correctional Sugar Inj SQ SCH ×3 (10:00→17:09)
[2018-08-09] MEDS: Polyethylene Glycol 3350 17 GM Packet PO SCH (10:01)
[2018-08-09 11:49] VITALS: RESP 18
[2018-08-09 15:18] VITALS: BP 123/66; TEMP 98.5; O2SAT 93
[2018-08-09 17:14] VITALS: PULSE 81
== END 2018-08-09 18:00 ==
LOC: HSDI 05:08 → HCVI 13:35 → HCPC 08-07 12:59
PROVIDERS: ADMIT Thoracic Surgery (Cardiothoracic Vascular Surgery); ATTEND Thoracic Surgery (Cardiothoracic Vascular Surgery)